=== PATIENT | female | born 1960 | race Caucasian/White ===

== ENCOUNTER 2016-09-30 11:08 | Day surgery (SDC) | payer OTHER ==
--- NOTE | ~2016-09-30 | EGD ---
EGD REPORT [facility] [address] [place]. [address] NAME: MERY OLIVAS : [birth year] STATUS : REG [facility] [place] PAT#: [id number] AGE: 56 ADM/REG DATE : 09/30/16 MR#: [id number] REPORT SERV DATE: 09/30/16 DICTATED BY: BAUDILIO LUTZ DATE: 09/30/16 REPORT STATUS : Draft TRANS[facility]IBED BY: [facility] DATE: 09/30/16 Endoscopy Center Patient Name: Mery Olivas. Date of : 1960 Attending MD: BAUDILIO LUTZ MD Procedure Date No Time: 09/30/2016 Procedure: Upper GI endoscopy Indications: Dysphagia Medicines: Propofol per Anesthesia Complications: No immediate complications. Procedure: Pre-Anesthesia Assessment: - ASA Grade Assessment: II - A patient with mild systemic disease. - ASA Grade Assessment: E - Emergency. After obtaining informed consent, the endoscope was passed under direct vision. Throughout the procedure, the patient's blood pressure, pulse, and oxygen saturations were monitored continuously. The GIF [id number] was introduced through the mouth, and advanced to the duodenal bulb. The upper GI endoscopy was accomplished without difficulty. The patient tolerated the procedure well. Findings: A benign-appearing, intrinsic severe stenosis measuring less than one cm (in length) x 6 mm (inner diameter) was found at the cricopharyngeus and was traversed. A guidewire was placed and the scope was withdrawn. Dilation was performed with a Savary dilator with no resistance at 45 Fr. Estimated blood loss: none. The entire examined stomach was normal. The examined duodenum was normal. Impression: - Benign-appearing esophageal stricture. Dilated. - Normal stomach. - Normal examined duodenum. Recommendation: - Discharge patient to home. - Soft diet for 2 days. - Continue present medications. - The findings and recommendations were discussed with the patient and their family. - After the procedure, if you experience any pain in abdomen or chest,shortness of breath,fever,chills,blood in stool,rectal bleeding,vomiting of any material,nausea,black stools or weakness or dizziness, EGD REPORT [address] [address] NAME: MERY OLIVAS : [birth year] STATUS : REG [facility] [place] PAT#: [id number] AGE: 56 ADM/REG DATE : 09/30/16 MR#: [id number] REPORT SERV DATE: 09/30/16 DICTATED BY: BAUDILIO LUTZ. DATE: 09/30/16 REPORT STATUS : Draft TRANSCRIBED BY: [employer] SERVICES DATE: 09/30/16 GO TO THE EMERGENCY IMMEDIATELY!!!!!!!!! Procedure Code(s): --- Professional --- 89864, Esophagogastroduodenoscopy, flexible, transoral; with insertion of guide wire followed by passage of dilator(s) through esophagus over guide wire Diagnosis Code(s): --- Professional --- K22.2, Esophageal obstruction R13.10, Dysphagia, unspecified CPT copyright 2013 [employer]. All rights reserved. The codes documented in this report are preliminary and upon spooler operator review may be revised to meet current compliance requirements. Baudilio Lutz MD BAUDILIO LUTZ MD 09/30/2016 1:18 PM This report has been signed electronically. Number of Addenda: 0 Note Initiated On: 09/30/2016 12:56 PM Scope Withdrawal Time 0 hours 0 minutes 0 seconds [id number] [id number]
[~2016-09-30 11:08] MED LIST: ACT300 PO; ATV1 PO; FIORICET PO; KLOR-CON M2020 MEQ PO; NEXIUM40 PO; QUESTRAN PO; QUESTRAN4 GM PO; REMICADE IV
== END 2016-09-30 23:59 | disposition home or self-care (01) ==
LOC: DMU 11:08
PROVIDERS: Internal Medicine Gastroenterology
PROC: 0D757ZZ Dilation of Esophagus, Via Natural or Artificial Opening (ICD-10-PCS; principal; 2016-09-30 11:30)
DX: K22.2 Esophageal obstruction (principal); K52.9 Noninfective gastroenteritis and colitis, unspecified; F17.210 Nicotine dependence, cigarettes, uncomplicated; Z88.5 Allergy status to narcotic agent; Z91.011 Allergy to milk products; Z79.899 Other long term (current) drug therapy